=== PATIENT | female | born 1985 | race Two or more races ===

== ENCOUNTER 2022-12-09 04:40 | Inpatient (IN) | payer OTHER ==
[2022-12-09] MEDS ORDERED: ELECTROLYTE-148 SOLN 1,000 ML IV SCH (05:30)
[2022-12-09] MEDS ORDERED: PROMETHAZINE HCL 25 MG/1 ML VIAL ONE ×2 (07:49→15:31)
[2022-12-09] MEDS ORDERED: BUTORPHANOL TARTRATE 2 MG/ML VIAL ONE ×2 (07:49→15:31)
[2022-12-09] MEDS ORDERED: PROMETHAZINE HCL 25 MG/1 ML VIAL IVPB ONE ×2 (08:14→15:30)
[2022-12-09] MEDS ORDERED: BUTORPHANOL TARTRATE 1 MG/ML VIAL IVPUSH ONE (08:14)
[2022-12-09 14:46] VITALS: BMI 23.3
[2022-12-09 15:25] LABS: BASO % 0.2 % (0-2.0); HEMATOCRIT 33.5 % (32.4-45.2); HEMOGLOBIN 11.4 GM/dL (10.7-15.3); LYMPH % 9.5 % (8-40); MCH 29.2 pg (25.7-33.7); MCHC 34.2 g/dl (32.0-36.0); MEAN CELL VOLUME 85.5 fl (80-96); MEAN PLT VOLUME 8.2 fl (7.5-11.1); NEUT % 85.3 % (42.8-82.8); PLATELET COUNT 319 10^3/uL (134-434); RBC 3.92 M/mm3 (3.60-5.2)
[2022-12-09] MEDS ORDERED: BUTORPHANOL TARTRATE 2 MG/ML VIAL IVPB ONE (15:30)
[2022-12-09 15:32] LABS: INR 0.93 (0.83-1.09); PROTHROMBIN TIME (PATIENT) 10.8 SEC (9.7-13.0)
[2022-12-09 15:34] LABS: ACTIVATED PTT 28.1 SECONDS (25.2-36.5)
[2022-12-09 15:35] LABS: POTASSIUM 4.2 mmol/L (3.5-5.1)
[2022-12-09 15:36] LABS: CALCIUM 8.8 mg/dL (8.5-10.1)
[2022-12-09 15:37] LABS: BLOOD UREA NITROGEN 7.1 mg/dL (7-18)
[2022-12-09 15:40] LABS: CREATININE 0.7 mg/dL (0.55-1.3)
[2022-12-09 17:17] LABS: OPIATES, URI NEGATIVE (NEGATIVE)
[2022-12-09 17:18] LABS: COCAINE, UR NEGATIVE (NEGATIVE); METHADONE, UR NEGATIVE (NEGATIVE); PHENCYCLIDINE,URINE NEGATIVE (NEGATIVE)
[2022-12-09 17:21] LABS: URINE AMPHETAMINES NEGATIVE (NEGATIVE); URINE BARBITURATES NEGATIVE (NEGATIVE); URINE BENZODIAZEPINES NEGATIVE (NEGATIVE)
[2022-12-09] MEDS ORDERED: OXYTOCIN 20 UNITS in 0.9% NS 20 UNIT/1,000 ML INFUS.BAG IV ONE (19:28)
[2022-12-09 22:47] LABS: CORD BASE EXCESS -7.4 mmol/L (0-2); CORD HCO3 18.4 mmHg (20-29); CORD PCO2 38.8 mmHg (30-78); CORD pH 7.295 (7.14-7.44)
[2022-12-09] MEDS ORDERED: ACETAMINOPHEN 325 MG TABLET (FP) PO PRN (22:48)
[2022-12-09] MEDS ORDERED: WITCH HAZEL 50% (TUCKS) 40 PAD/JAR PAD TP PRN (22:48)
[2022-12-09] MEDS ORDERED: METHYLERGONOVINE MALEATE 0.2 MG/1 ML AMP IM PRN (22:48)
[2022-12-09] MEDS ORDERED: BISACODYL 10 MG SUPP.RECT RC PRN (22:48)
[2022-12-09] MEDS ORDERED: BENZOCAINE 28 GM HEMORRHOIDAL OINTMENT TP PRN (22:48)
[2022-12-09] MEDS ORDERED: oxyCODONE HCL 5 MG TABLET PO PRN (22:48)
[2022-12-09] MEDS ORDERED: OXYTOCIN 20 UNITS in 0.9% NS 20 UNIT/1,000 ML INFUS.BAG IV SCH (23:00)
[2022-12-10 06:47] LABS: BASO % 0.1 % (0-2.0); HEMATOCRIT 28.5 % (32.4-45.2); MCH 30.2 pg (25.7-33.7); MCHC 35.2 g/dl (32.0-36.0); MEAN CELL VOLUME 85.6 fl (80-96); MEAN PLT VOLUME 8.5 fl (7.5-11.1); MONO % 7.1 % (3.8-10.2); NEUT % 81.8 % (42.8-82.8); PLATELET COUNT 283 10^3/uL (134-434); RBC 3.33 M/mm3 (3.60-5.2); RDW 13.9 % (11.6-15.6); WHITE BLOOD COUNT 16.3 K/mm3 (4.0-10.0)
[2022-12-10] MEDS: IBUPROFEN 600 MG TABLET (FP) PO PRN ×3 (06:54→19:23)
[2022-12-10] MEDS: FERROUS SO4 325 MG TABLET (FP) PO SCH ×3 (08:58→18:01)
[2022-12-10] MEDS: PRENATAL VITAMINS W/ FOLIC ACID TABLET (FP) PO SCH (11:01)
[2022-12-10] MEDS: BENZOCAINE 20% 57 GM BOTTLE TP PRN (14:32)
[2022-12-10 14:45] VITALS: RESP 18
[2022-12-10] MEDS ORDERED: SENNOSIDES/DOCUSATE COMBO (SENNA PLUS) TABLET (UD) PO PRN (22:00)
[2022-12-11] MEDS: IBUPROFEN 600 MG TABLET (FP) PO PRN ×2 (00:50→09:28)
[2022-12-11] MEDS: FERROUS SO4 325 MG TABLET (FP) PO SCH ×2 (08:47→12:41)
[2022-12-11] MEDS: PRENATAL VITAMINS W/ FOLIC ACID TABLET (FP) PO SCH (09:23)
[2022-12-11 09:36] VITALS: BP 97/53; PULSE 104; TEMP 98.7
[2022-12-11] MEDS: BENZOCAINE 20% 57 GM BOTTLE TP PRN (12:43)
== END 2022-12-11 16:10 | disposition home or self-care (01) | DRG 560 ==
LOC: JDEL 04:40 → JLDR 14:05 → J3W 12-10 00:18
PROVIDERS: ADMIT Obstetrics & Gynecology; ATTEND Obstetrics & Gynecology
PROC: 10E0XZZ Delivery of Products of Conception, External Approach (ICD-10-PCS; principal; 2022-12-09)
PROC: 0KQM0ZZ Repair Perineum Muscle, Open Approach (ICD-10-PCS; 2022-12-09)
DX: O70.1 Second degree perineal laceration during delivery (principal); Z3A.39 39 weeks gestation of pregnancy; Z37.0 Single live birth
CPT/HCPCS: 36415; 36600; 80048; 80307; 82803; 85025; 85610; 85730; 86780; 86850; 86900; 86901; C9803-CS; U0003; U0005